=== PATIENT | female | born 1955 | race Caucasian/White ===

== ENCOUNTER 2016-05-15 13:40 | Emergency (ER) | payer OTHER ==
[~2016-05-15] VITALS: Ht 154.9 cm; Wt 47.1 kg
[~2016-05-15 13:40] MED LIST: AZIT250T3 PO; IPRA0.03 EACH NARE; MEDR4PAK PO
[2016-05-15 13:53] VITALS: BP 115/70; PULSE 67; RESP 16; TEMP 98.1; O2SAT 100
[2016-05-15] MEDS ORDERED: PROZ40CA PO (14:00)
[2016-05-15] MEDS ORDERED: TRAZ50TA12 PO (14:00)
[2016-05-15] MEDS ORDERED: AMOX875T PO (14:20)
[2016-05-15] MEDS ORDERED: PRED10PA2 PO (14:20)
[2016-05-15] MEDS ORDERED: predniSONE 20 MG TAB PO ONE (14:30)
[2016-05-15] MEDS ORDERED: RESP: ALBUTEROL 2.5 MG/IPRATROPIUM 0.5 MG NEB (SCH) INH ONE (14:30)
--- NOTE | 2016-05-15 14:31 | PD ---
HPI Chief Complaint: Cold / Flu Symptoms Time Seen by Provider: 14:27 Travel History International Travel<30 days: No Contact w/Intl Traveler<30days: No Traveled to known affect area: No History of Present Illness HPI 60-year-old female presents the emergency department with history of COPD requiring inhalers, complaining of 34 days of increasing cough and shortness of breath. Patient denies fever, chills, or productive cough. She has no headache, sore throat, or ear pain. She denies chest pain per se, but feels this is more of a flareup of her chronic bronchitis. Patient denies nausea vomiting or abdominal discomfort. She has no known drug allergies. PFSH Past Medical History COPD: Yes Diminished Hearing: No Tetanus Vaccination: < 5 Years Influenza Vaccination: No ?: Not Past Surgical History Joint Replacement: Yes (hip) Social History Alcohol Use: No Tobacco Use: Yes (E-cigarette) Substance Use: No Allergies-Medications (Allergen,Severity, Reaction): Coded Allergies: No Known Allergies (Verified , 05/15/16) Reported Meds & Prescriptions Reported Meds & Active Scripts Active Prednisone (48) 10 mg tab Dose Pack (Prednisone) 10 Mg Dspk 10 Mg PO DIRECTED Amoxicillin 875 Mg Tab 875 Mg PO BID Reported Trazodone (Trazodone HCl) 50 Mg Tab 25 Mg PO HS Prozac (Fluoxetine HCl) 40 Mg Cap 40 Mg PO DAILY Review of Systems General / Constitutional: No: Fever, Chills Eyes: No: Visual changes HENT: No: Headaches, Sore Throat, Rhinitis, Rhinorrhea, Congestion, Nosebleed, Neck Stiffness, Neck Pain, Ear Discharge, Earache Cardiovascular: No: Chest Pain or Discomfort Respiratory: Positive: Cough, Shortness of Breath, Wheezing, No: Sneezing, Orthopnea, Hemoptysis, Night Sweats, Pleuritic Pain Gastrointestinal: No: Nausea, Vomiting, Diarrhea, Abdominal Pain Genitourinary: No: Dysuria Musculoskeletal: No: Pain Skin: No Rash Neurologic: No: Weakness Psychiatric: No: Depression Endocrine: No: Polydipsia Hematologic/Lymphatic: No: Easy Bruising Physical Exam Narrative GENERAL: Patient appears in no acute distress. SKIN: Warm and dry. Normal color. Normal turgor. HEAD: Atraumatic. Normocephalic. EYES: Pupils equal and round. No scleral icterus. No injection or drainage. ENT: No nasal bleeding or discharge. Mucous membranes pink and moist. TMs are normal bilaterally. Pharynx is normal. Airway is patent. NECK: Trachea midline. No JVD. Supple nontender. CARDIOVASCULAR: Regular rate and rhythm. RESPIRATORY: No accessory muscle use. Coarse with diffuse wheezes to auscultation. Breath sounds equal bilaterally. GASTROINTESTINAL: Abdomen soft, non-tender, nondistended. Hepatic and splenic margins not palpable. MUSCULOSKELETAL: Extremities without clubbing, cyanosis, or edema. No obvious deformities. NEUROLOGICAL: Awake and alert. No obvious cranial nerve deficits. Motor grossly within normal limits. Five out of 5 muscle strength in the arms and legs. Normal speech. PSYCHIATRIC: Appropriate mood and affect; insight and judgment normal. Data Data Last Documented VS Vital Signs Date Time Temp Pulse Resp B/P Pulse Ox O2 Delivery O2 Flow Rate FiO2 05/15/16 14:00 18 100 Room Air 05/15/16 13:53 98.1 67 115/70 Orders Albuterol-Ipratropium Neb (Duoneb Neb) (05/15/16 14:30) Prednisone (Deltasone) (05/15/16 14:30) MDM Medical Decision Making Medical Screen Exam Complete: Yes Emergency Medical Condition: Yes Differential Diagnosis Bronchitis. COPD flare. Wheezing. Narrative Course Patient is medically stable at time of exam. Patient is given 60 mg prednisone by mouth as well as DuoNeb 1. Patient discharged home on amoxicillin 875 mg twice a day 10 days. Patient is given a prednisone dosepak as prescribed. Patient is continue with her albuterol inhaler every 4-6 hours when necessary wheeze. Patient should follow-up with her primary care physician if symptoms do not improve or return to emergency department if symptoms symptoms are worsening. Diagnosis Primary Impression: Acute bronchitis Qualified Code: J20.9 - Acute bronchitis, unspecified organism Additional Impression: COPD exacerbation Referrals: Primary Care Physician Patient Instructions: Acute Bronchitis (DC), COPD (Chronic Obstructive Pulmonary Disease) (ED), General Instructions Additional Instructions: Patient is given 60 mg prednisone by mouth as well as DuoNeb 1. Patient discharged home on amoxicillin 875 mg twice a day 10 days. Patient is given a prednisone dosepak as prescribed. Patient is continue with her albuterol inhaler every 4-6 hours when necessary wheeze. Patient should follow-up with her primary care physician if symptoms do not improve or return to emergency department if symptoms symptoms are worsening. Med/Other Pt SpecificInfo: Prescription(s) given Scripts Prednisone (48) 10 mg tab Dose Pack 10 Mg Dspk10 Mg PO DIRECTED #1 DSPK Prov:Valeria Herron MD 05/15/16 Amoxicillin 875 Mg [id number] Mg PO BID #20 TAB Prov:Valeria Herron MD 05/15/16 Disposition: 01 DISCHARGE HOME Condition: Stable Jak Chairez May 15, 2016 14:31
== END 2016-05-15 14:51 | disposition home or self-care (01) ==
LOC: PHEFT 13:40
DX: J44.0 Chronic obstructive pulmonary disease with (acute) lower respiratory infection (principal); J44.1 Chronic obstructive pulmonary disease with (acute) exacerbation; J20.9 Acute bronchitis, unspecified
CPT/HCPCS: 94664; 99283; J7512

== ENCOUNTER 2016-09-02 07:47 | Emergency (ER) | payer OTHER ==
[~2016-09-02] VITALS: Ht 154.9 cm; Wt 48.0 kg
[~2016-09-02 07:47] MED LIST changes: +AMOX875T PO; -AZIT250T3 PO; -IPRA0.03 EACH NARE; -MEDR4PAK PO; +PRED10PA2 PO; +PROZ40CA PO; +TRAZ50TA12 PO
[2016-09-02 07:54] VITALS: BP 129/76; PULSE 67; RESP 16; TEMP 98.1; O2SAT 100
[2016-09-02] MEDS ORDERED: SPIRCAP INH (08:05)
[2016-09-02] MEDS ORDERED: ADVA250A INH (08:05)
[2016-09-02] MEDS ORDERED: VENTAER INH (08:05)
[2016-09-02] MEDS ORDERED: ZITHTAB PO (08:17)
[2016-09-02] MEDS ORDERED: PRED10PA2 PO (08:17)
--- NOTE | 2016-09-02 08:17 | PD ---
HPI . Shortness of breath Chief Complaint: Respiratory Symptoms Time Seen by Provider: 08:10 Travel History International Travel<30 days: No Contact w/Intl Traveler<30days: No Traveled to known affect area: No History of Present Illness HPI This patient presents with the chief complaint of shortness of breath. Her symptoms are actually pretty vague. She states that she has a history of COPD and she feels like she now has bronchitis. She states that she rhonchi this about every 3 months and she feels that she has it again. She reports very mild cough. There is no sputum production. There is no fever. She does state that her "lung hurts when she coughs. She does admit to some mildly increased shortness of breath for the last few days. 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 She states that her symptoms are improved with use of her MDI. She states that she has not been using her inhalers the way that she should. PFSH Past Medical History COPD: Yes Diminished Hearing: No Influenza Vaccination: No ?: Not Past Surgical History Joint Replacement: Yes (hip) Social History Alcohol Use: No Tobacco Use: Yes (E-cigarette) Substance Use: No Allergies-Medications (Allergen,Severity, Reaction): Coded Allergies: No Known Allergies (Verified , 09/02/16) Reported Meds & Prescriptions Reported Meds & Active Scripts Active Reported Ventolin Hfa 18 GM Inh (Albuterol Sulfate) 90 Mcg/Act Aer 2 Puff INH Q4-6H PRN Spiriva Handihaler (Tiotropium Inh) 18 Mcg Cap 18 Mcg INH DAILY 1 capsule = 18 mcg Advair Diskus Inh (Fluticasone-Salmeterol Inh) 250-50 Mcg/Blist Aer 1 Puff INH BID Rinse mouth after use. Trazodone (Trazodone HCl) 50 Mg Tab 25 Mg PO HS Prozac (Fluoxetine HCl) 40 Mg Cap 40 Mg PO DAILY Review of Systems Except as stated in HPI: all other systems reviewed are Neg General / Constitutional: Positive: Chills, No: Fever Cardiovascular: Positive: Chest Pain or Discomfort Respiratory: Positive: Cough, Shortness of Breath Gastrointestinal: No: Nausea, Vomiting, Diarrhea Physical Exam Narrative GENERAL: Patient is awake and alert. She is a little anxious appearing. She became tearful. SKIN: Warm and dry. HEAD: Atraumatic. Normocephalic. EYES: Pupils equal and round. Extraocular movements are intact. ENT: No nasal bleeding or discharge. Mucous membranes pink and moist. NECK: Trachea midline. Neck is supple. No cervical lymphadenopathy. CARDIOVASCULAR: Regular rate and rhythm. Heart sounds are normal. RESPIRATORY: No accessory muscle use. She is moaning with most expirations but I don't hear any wheezing. She has good air movement throughout. GASTROINTESTINAL: Abdomen soft, non-tender, nondistended. MUSCULOSKELETAL: No obvious deformities. No edema. NEUROLOGICAL: Awake and alert. No obvious cranial nerve deficits. Motor grossly within normal limits. Normal speech. PSYCHIATRIC: Appropriate mood and affect; insight and judgment normal. Data Data Last Documented VS Vital Signs Date Time Temp Pulse Resp B/P Pulse Ox O2 Delivery O2 Flow Rate FiO2 09/02/16 08:06 18 96 Room Air 09/02/16 07:54 98.1 67 129/76 MDM Medical Decision Making Medical Screen Exam Complete: Yes Emergency Medical Condition: Yes Differential Diagnosis Differential diagnosis of dyspnea includes but is not limited to congestive heart failure, pneumonia, wheezing, pneumothorax, pulmonary embolism Narrative Course Patient presents complaining with increased dyspnea and some chest discomfort with respirations and coughing. She feels that she has an exacerbation of bronchitis. I will treat her with a Z-Ryne and steroids. Diagnosis Primary Impression: Acute bronchitis Qualified Code: J20.9 - Acute bronchitis, unspecified organism Patient Instructions: Acute Bronchitis (DC), General Instructions Scripts Prednisone (48) 10 mg tab Dose Pack 10 Mg Dspk10 Mg PO DIRECTED #1 DSPK Ref 0 Prov:Tonia Srinivasan MD 09/02/16 Azithromycin (Zithromax Z-Ryne)250 Mg [id number] Mg PO DIRECTED #1 DSPK Ref 0 500 MG (2 tabs) day 1, then 1 tab days 2-5. Prov:Tonia Srinivasan MD 09/02/16 Tonia Srinivasan MD Sep 02, 2016 08:17
== END 2016-09-02 08:29 | disposition home or self-care (01) ==
LOC: PHED 07:47
DX: J44.0 Chronic obstructive pulmonary disease with (acute) lower respiratory infection (principal); J20.9 Acute bronchitis, unspecified
CPT/HCPCS: 99284

== ENCOUNTER 2016-12-01 12:18 | Emergency (ER) | payer BC, OTHER ==
[~2016-12-01] VITALS: Ht 154.9 cm; Wt 48.7 kg
[~2016-12-01 12:18] MED LIST changes: +ADVA250A INH; -AMOX875T PO; +SPIRCAP INH; +VENTAER INH; +ZITHTAB PO
[2016-12-01 12:20] VITALS: BP 137/66; PULSE 84; RESP 20; TEMP 97.9; O2SAT 98
[2016-12-01] MEDS ORDERED: RESP: ALBUTEROL 2.5 MG/IPRATROPIUM 0.5 MG NEB (SCH) NEB ONE (13:30)
--- NOTE | 2016-12-01 13:35 | PD ---
HPI Chief Complaint: Respiratory Symptoms Time Seen by Provider: 13:15 Travel History International Travel<30 days: No Contact w/Intl Traveler<30days: No Traveled to known affect area: No History of Present Illness HPI This 61-year-old female is complaining of shortness of breath. She has a history of COPD. She currently smokes 3 cigarettes. She is on Spiriva and Advair. She's been sick for a few days. She's been coughing up some phlegm of breath at times. He has no history of heart disease. PFSH Past Medical History COPD: Yes Diminished Hearing: No ?: Not Past Surgical History Joint Replacement: Yes (hip) Social History Alcohol Use: No Tobacco Use: Yes (E-cigarette) Substance Use: No Allergies-Medications (Allergen,Severity, Reaction): Coded Allergies: No Known Allergies (Verified , 12/01/16) Reported Meds & Prescriptions Reported Meds & Active Scripts Active Reported Ventolin Hfa 18 GM Inh (Albuterol Sulfate) 90 Mcg/Act Aer 2 Puff INH Q4-6H PRN Spiriva Handihaler (Tiotropium Inh) 18 Mcg Cap 18 Mcg INH DAILY 1 capsule = 18 mcg Advair Diskus Inh (Fluticasone-Salmeterol Inh) 250-50 Mcg/Blist Aer 1 Puff INH BID Rinse mouth after use. Trazodone (Trazodone HCl) 50 Mg Tab 25 Mg PO HS Prozac (Fluoxetine HCl) 40 Mg Cap 40 Mg PO DAILY Review of Systems General / Constitutional: No: Fever, Chills Eyes: No: Diploplia, Blurred Vision HENT: No: Headaches, Vertigo Cardiovascular: No: Chest Pain or Discomfort, Palpitations Respiratory: Positive: Cough, No: Shortness of Breath Gastrointestinal: No: Nausea, Vomiting Genitourinary: No: Urgency, Frequency Musculoskeletal: No: Myalgias, Arthralgias Skin: No Rash Physical Exam Narrative GENERAL: Thin female in mild respiratory distress SKIN: Focused skin assessment warm/dry. HEAD: Atraumatic. Normocephalic. EYES: Pupils equal and round. No scleral icterus. No injection or drainage. ENT: No nasal bleeding or discharge. Mucous membranes pink and moist. NECK: Trachea midline. No JVD. CARDIOVASCULAR: Regular rate and rhythm. No murmur appreciated. RESPIRATORY: No accessory muscle use. There are scattered rhonchi. Breath sounds equal bilaterally. GASTROINTESTINAL: Abdomen soft, non-tender, nondistended. Hepatic and splenic margins not palpable. MUSCULOSKELETAL: No obvious deformities. No clubbing. No cyanosis. No edema. NEUROLOGICAL: Awake and alert. No obvious cranial nerve deficits. Motor grossly within normal limits. Normal speech. PSYCHIATRIC: Appropriate mood and affect; insight and judgment normal. Data Data Last Documented VS Vital Signs Date Time Temp Pulse Resp B/P (MAP) Pulse Ox O2 Delivery O2 Flow Rate FiO2 12/01/16 13:32 16 97 Room Air 12/01/16 12:20 97.9 84 137/66 (89) Orders Orders Chest, Single Ap (12/01/16 13:19) Albuterol-Ipratropium Neb (Duoneb Neb) (12/01/16 13:30) Prednisone (Deltasone) (12/01/16 13:45) Amoxicillin (Trimox) (12/01/16 13:45) MDM Medical Decision Making Medical Screen Exam Complete: Yes Emergency Medical Condition: Yes Medical Record Reviewed: Yes Differential Diagnosis Differential includes COPD exacerbation, acute bronchitis, pneumonia Narrative Course Chest x-ray does not show any acute infiltrates. Impression is acute bronchitis /COPD Diagnosis Primary Impression: Acute bronchitis Qualified Codes: J20.9 - Acute bronchitis, unspecified Additional Impression: COPD exacerbation Scripts Amoxicillin (Amoxicillin) 500 Mg Tab 500 MG PO TID for Infection for 7 Days, TAB 0 Refills Prov: Russell Thorne MD 12/01/16 Prednisone (Prednisone) 20 Mg Tab 60 MG PO DAILY for 5 Days, #15 TAB 0 Refills Prov: Russell Thorne MD 12/01/16 Disposition: 01 DISCHARGE HOME Condition: Stable Russell Thorne MD Dec 01, 2016 13:35
[2016-12-01] MEDS ORDERED: predniSONE 20 MG TAB PO ONE (13:45)
[2016-12-01] MEDS ORDERED: AMOXICILLIN (TRIHYDRATE) 500 MG CAP PO ONE (13:45)
--- NOTE | 2016-12-01 14:09 | RADRPT ---
EXAM DATE/TIME: 12/01/2016 13:27 [facility] COMPARISON: No previous studies available for comparison. INDICATIONS : Cough and short of breath. MEDICAL HISTORY : Chronic obstructive pulmonary disease. SURGICAL HISTORY : None. ENCOUNTER: Initial ACUITY: 2 days PAIN SCORE: 0/10 LOCATION: Bilateral chest FINDINGS: A single view of the chest demonstrates the lungs to be symmetrically aerated without evidence of mas s, infiltrate or effusion. The cardiomediastinal contours are unremarkable. Osseous structures are intact. CONCLUSION: No acute disease. Eligio Head MD on December 01, 2016 at 14:08 Board Certified Radiologist. This report was verified electronically.
[2016-12-01] MEDS ORDERED: PRED20 PO (14:11)
[2016-12-01] MEDS ORDERED: AMOX500T PO (14:11)
== END 2016-12-01 14:50 | disposition home or self-care (01) ==
LOC: PHED 12:18
DX: J20.9 Acute bronchitis, unspecified (principal); J44.0 Chronic obstructive pulmonary disease with (acute) lower respiratory infection; Z72.0 Tobacco use
CPT/HCPCS: 71010; 94664; 99284; J7512

== ENCOUNTER 2017-02-11 12:46 | Emergency (ER) | payer BC ==
[~2017-02-11] VITALS: Ht 154.9 cm; Wt 47.9 kg
[~2017-02-11 12:46] MED LIST changes: +AMOX500T PO; -PRED10PA2 PO; +PRED20 PO; -ZITHTAB PO
[2017-02-11 13:29] VITALS: BP 126/73; PULSE 73; RESP 18; TEMP 98.1; O2SAT 99
[2017-02-11] MEDS ORDERED: AZIT250T3 PO (14:49)
[2017-02-11] MEDS ORDERED: PRED20 PO (14:49)
--- NOTE | 2017-02-11 14:59 | PD ---
HPI Chief Complaint: Cold / Flu Symptoms Time Seen by Provider: 14:39 Travel History International Travel<30 days: No Contact w/Intl Traveler<30days: No Traveled to known affect area: No History of Present Illness HPI 61-year-old female with history of COPD presents to the emergency room for evaluation of nonproductive cough for the past 2 days. Patient states "I think I have bronchitis." She is having associated malaise past several days. Patient denies fever but has felt chilled. She denies congestion, sore throat, or any other upper respiratory symptoms. She reports having had chest x-ray a couple months ago and blood work a couple weeks ago that were all unremarkable. She denies any significant shortness of breath. Denies any other chronic medical conditions. PFSH Past Medical History COPD: Yes Diminished Hearing: No Respiratory: Yes (COPD) Past Surgical History Joint Replacement: Yes (hip) Social History Alcohol Use: No Tobacco Use: Yes (E-cigarette) Substance Use: No Allergies-Medications (Allergen,Severity, Reaction): Coded Allergies: No Known Allergies (Verified Adverse Reaction, Unknown, 02/11/17) Reported Meds & Prescriptions Reported Meds & Active Scripts Active Azithromycin 250 Mg Tab 250 Mg PO DIRECTED Take 2 tabs (500 mg) on day 1 then 1 tab daily x 4 days. Prednisone 20 Mg Tab 40 Mg PO DAILY Take 40 mg (2 tablets) daily for 5 days Amoxicillin 500 Mg Tab 500 Mg PO TID 7 Days Prednisone 20 Mg Tab 60 Mg PO DAILY 5 Days Reported Ventolin Hfa 18 GM Inh (Albuterol Sulfate) 90 Mcg/Act Aer 2 Puff INH Q4-6H PRN Spiriva Handihaler (Tiotropium Inh) 18 Mcg Cap 18 Mcg INH DAILY 1 capsule = 18 mcg Advair Diskus Inh (Fluticasone-Salmeterol Inh) 250-50 Mcg/Blist Aer 1 Puff INH BID Rinse mouth after use. Trazodone (Trazodone HCl) 50 Mg Tab 25 Mg PO HS Prozac (Fluoxetine HCl) 40 Mg Cap 40 Mg PO DAILY Review of Systems Except as stated in HPI: all other systems reviewed are Neg Physical Exam Narrative GENERAL: Well-nourished, well-developed female in no acute distress. Afebrile. Ambulatory. Resting comfortably in bed. SKIN: Focused skin assessment warm/dry. HEAD: Normocephalic. EYES: No scleral icterus. No injection or drainage. ENT: Mucosa pink and moist. No erythema or exudates. No uvular edema. No uvular , palatal, or tonsillar deviation. Airway patent. Nasal turbinates appear normal without nasal blood, purulent drainage or septal hematoma. NECK: Supple, trachea midline. No JVD or lymphadenopathy. CARDIOVASCULAR: Regular rate and rhythm without murmurs, gallops, or rubs. RESPIRATORY: Breath sounds equal bilaterally. No accessory muscle use. Bilateral expiratory wheezes and rhonchi. Data Data Last Documented VS Vital Signs Date Time Temp Pulse Resp B/P (MAP) Pulse Ox O2 Delivery O2 Flow Rate FiO2 02/11/17 13:29 98.1 73 18 126/73 (90) 99 MDM Medical Decision Making Medical Screen Exam Complete: Yes Emergency Medical Condition: Yes Medical Record Reviewed: Yes Differential Diagnosis Bronchitis, COPD exacerbation, pneumonia, asthma Narrative Course 61-year-old female presents to the emergency room stating "I think I have bronchitis." Patient is well-appearing, resting comfortably in bed. She's been sick for a few days. Cough is nonproductive. Vital signs stable. According to EMR, patient has been seen for the same complaint multiple times. She also received steroids and antibiotics and is requesting the same today. Lung sounds reveal bilateral expiratory wheezing and rhonchi. Patient will be discharged with prescription for prednisone. She was warned about taking antibiotics when not needed such as with viral bronchitis. Patient was told to take prednisone and only take antibiotics if that medication does not improve her symptoms. She understands and agrees to plan. Diagnosis Primary Impression: Acute bronchitis Qualified Codes: J20.9 - Acute bronchitis, unspecified Referrals: Primary Care Physician Additional Instructions: prednisone as directed, until gone. Only take azithromycin if prednisone does not help. Follow-up with a primary care physician. Return for worsening symptoms. Med/Other Pt SpecificInfo: Prescription(s) given Scripts Azithromycin (Azithromycin) 250 Mg Tab 250 MG PO DIRECTED for Infection, #6 TAB 0 Refills Take 2 tabs (500 mg) on day 1 then 1 tab daily x 4 days. Prov: Palmer Rosa MD 02/11/17 Prednisone (Prednisone) 20 Mg Tab 40 MG PO DAILY, #10 TAB 0 Refills Take 40 mg (2 tablets) daily for 5 days Prov: Palmer Rosa MD 02/11/17 Disposition: 01 DISCHARGE HOME Condition: Stable Citlali Yanez Feb 11, 2017 14:59
== END 2017-02-11 15:53 | disposition home or self-care (01) ==
LOC: PHEFT 12:46
DX: J44.0 Chronic obstructive pulmonary disease with (acute) lower respiratory infection (principal); J20.9 Acute bronchitis, unspecified; F17.290 Nicotine dependence, other tobacco product, uncomplicated
CPT/HCPCS: 87804; 99284

== ENCOUNTER 2017-02-15 11:12 | Emergency (ER) | payer BC ==
[~2017-02-15] VITALS: Ht 154.9 cm; Wt 48.0 kg
[~2017-02-15 11:12] MED LIST changes: -AMOX500T PO; -PRED20 PO
[2017-02-15 11:16] VITALS: BP 120/59; PULSE 82; RESP 18; TEMP 98.2; O2SAT 98
[2017-02-15] MEDS ORDERED: MEDR4PAK PO (11:50)
--- NOTE | 2017-02-15 12:06 | PD ---
HPI Chief Complaint: Cold / Flu Symptoms Time Seen by Provider: 11:46 Travel History International Travel<30 days: No Contact w/Intl Traveler<30days: No Traveled to known affect area: No History of Present Illness HPI 61-year-old female with history of COPD her for evaluation of cough. She was seen on 02/12/17 for same complaint. She was diagnosed with bronchitis and discharged home with azithromycin and prednisone. She reports she took the steroids but not the antibiotic. She reports the cough continues and she wanted to be reevaluated. She denies fever or chills. She denies chest pain or severe shortness of breath. She reports she chronically feels short of breath. Symptoms severity is mild. No alleviating factors. PFSH Past Medical History Hx Anticoagulant Therapy: No Anxiety: Yes COPD: Yes Diabetes: No Diminished Hearing: No Psychiatric: Yes Respiratory: Yes Immunizations Current: Yes Tetanus Vaccination: Unknown Influenza Vaccination: No ?: Not Menopausal: Yes Past Surgical History Joint Replacement: Yes (L hip) Social History Alcohol Use: No Tobacco Use: Yes (E-cigarette) Substance Use: No Allergies-Medications (Allergen,Severity, Reaction): Coded Allergies: No Known Allergies (Verified Adverse Reaction, Unknown, 02/15/17) Reported Meds & Prescriptions Reported Meds & Active Scripts Active Medrol Dosepak (Methylprednisolone) 4 Mg Dspk 4 Mg PO DIRECTED Per Pharmacist direction Reported Ventolin Hfa 18 GM Inh (Albuterol Sulfate) 90 Mcg/Act Aer 2 Puff INH Q4-6H PRN Spiriva Handihaler (Tiotropium Inh) 18 Mcg Cap 18 Mcg INH DAILY 1 capsule = 18 mcg Advair Diskus Inh (Fluticasone-Salmeterol Inh) 250-50 Mcg/Blist Aer 1 Puff INH BID Rinse mouth after use. Trazodone (Trazodone HCl) 50 Mg Tab 25 Mg PO HS Prozac (Fluoxetine HCl) 40 Mg Cap 40 Mg PO DAILY Review of Systems Except as stated in HPI: all other systems reviewed are Neg General / Constitutional: No: Fever Respiratory: Positive: Cough Physical Exam Narrative GENERAL: Alert well-appearing female no acute distress. He is resting comfortably on stretcher SKIN: Warm and dry. HEAD: Normocephalic. EYES: No scleral icterus. No injection or drainage. NECK: Supple, trachea midline. No JVD or lymphadenopathy. CARDIOVASCULAR: Regular rate and rhythm without murmurs, gallops, or rubs. RESPIRATORY: Breath sounds equal bilaterally. No accessory muscle use. GASTROINTESTINAL: Abdomen soft, non-tender, nondistended. MUSCULOSKELETAL: No cyanosis, or edema. BACK: Nontender without obvious deformity. No CVA tenderness. Data Data Last Documented VS Vital Signs Date Time Temp Pulse Resp B/P (MAP) Pulse Ox O2 Delivery O2 Flow Rate FiO2 02/15/17 11:24 98 Room Air 02/15/17 11:16 98.2 82 18 120/59 (79) MDM Medical Decision Making Medical Screen Exam Complete: Yes Emergency Medical Condition: Yes Differential Diagnosis Bronchitis, pneumonia, COPD exacerbation Narrative Course 61-year-old female with history of COPD her for evaluation of cough. She was seen on 02/12/17 for same complaint. She was diagnosed with bronchitis and discharged home with azithromycin and prednisone. She reports she took the steroids but not the antibiotic. She reports the cough continues and she wanted to be reevaluated. Her physical exam is reassuring. No respiratory distress. Her lung sounds are clear bilaterally. Vital signs are stable. She was instructed to take the azithromycin as previously prescribed. She is requesting 5 more days of steroids hitting her doctor treated her routinely with 10 days with steroids. She will be given a steroid taper and instructed to follow-up with her primary doctor. Diagnosis Primary Impression: COPD exacerbation Additional Impression: Acute bronchitis Qualified Codes: J20.9 - Acute bronchitis, unspecified Referrals: Primary Care Physician Additional Instructions: Take medications as prescribed. Follow-up with her primary doctor. Return if he developed new or worsening symptoms Scripts Methylprednisolone Dosepak (Medrol Dosepak) 4 Mg Dspk 4 MG PO DIRECTED, #1 DSPK 0 Refills Per Pharmacist direction Prov: Tiffanie Reddy 02/15/17 Disposition: 01 DISCHARGE HOME Condition: Stable Tiffanie Reddy Feb 15, 2017 12:05
== END 2017-02-15 12:22 | disposition home or self-care (01) ==
LOC: PHEFT 11:12
DX: J44.1 Chronic obstructive pulmonary disease with (acute) exacerbation (principal); J44.0 Chronic obstructive pulmonary disease with (acute) lower respiratory infection; J20.9 Acute bronchitis, unspecified; F17.290 Nicotine dependence, other tobacco product, uncomplicated
CPT/HCPCS: 99283